=== PATIENT | male | born 1970 | race Caucasian/White ===

== ENCOUNTER 2020-07-05 11:41 | Emergency (ER) | payer OTHER ==
[~2020-07-05] VITALS: Ht 180.3 cm; Wt 104.7 kg
[~2020-07-05 11:41] MED LIST: FISH12002 PO; GLUC15006 PO; IBUP200C8 PO; MELO15TA24 PO; MULT-658 PO; OMEG-158 PO; OXYC5TAB2 PO
--- NOTE | 2020-07-05 11:43 | NUR ---
NIL x1.
[2020-07-05 14:02] VITALS: BP 132/77
== END 2020-07-05 14:05 | disposition home or self-care (01) ==
LOC: ED 13:52
DX: I80.02 Phlebitis and thrombophlebitis of superficial vessels of left lower extremity (principal); Z86.718 Personal history of other venous thrombosis and embolism; Z87.891 Personal history of nicotine dependence
CPT/HCPCS: 99284